=== PATIENT | female | born 1940 | race Caucasian/White ===

== ENCOUNTER 2018-08-28 10:28 | Emergency (ER) | payer OTHER, SELFPAY ==
[2018-08-28 10:40] VITALS: BP 140/91; PULSE 96; RESP 20; TEMP 36.5; O2SAT 96
--- NOTE | 2018-08-28 11:24 | W.ED.GENAD ---
Discharge Plan Disposition Patient Disposition: HOME Condition: Improving Discharge Details Chief Complaint: RespSymp Clinical Impression: Pneumonia, Asthmatic bronchitis Primary Care Provider: Sarahi Gordon ED Provider: Lissa Mcadams Home Meds and New Rx's Prescriptions: New prednisone 20 mg tablet 20 mg PO DIRECTED Qty: 12 RF: 0 doxycycline hyclate 100 mg tablet 100 mg PO BID 6 Days Qty: 12 RF: 0 No Action mometasone-formoterol [Dulera] 8.8 GM HFA aerosol inhaler 2 puff IN BID RF: 0 insulin lispro [Humalog KwikPen Insulin] 100 UNIT/ML insulin pen RF: 0 insulin glargine [Lantus Solostar U-100 Insulin] 100 UNIT/ML insulin pen 36 units Sub-Q HS RF: 0 Tresiba U-100 Insulin 100 unit/mL Solution 100 unit subcut DAILY RF: 0 aspirin [Aspir-Low] 81 MG tablet,delayed release (DR/EC) 81 mg PO DAILY RF: 0 levothyroxine [Levoxyl] 88 MCG tablet 88 mcg PO DAILY RF: 0 albuterol sulfate [ProAir HFA] 8.5 GM HFA aerosol inhaler 2 puff Inhalation PRN PRNRF: 0 rizatriptan [Maxalt-ELECTROLYSIS OPERATOR] 5 MG tablet,disintegrating 5 mg PO PRN PRNRF: 0 atorvastatin [Lipitor] 10 MG tablet 10 mg PO DAILY RF: 0 metformin 1,000 MG tablet 1,000 mg PO BID RF: 0 Discharge Instructions Instructions: Acute Bronchitis (ED), Pneumonia (ED) Additional Instructions: Take the antibiotics and steroids until finished. Use your albuterol inhaler that you have at home as needed for shortness of breath or wheezing. Monitor your blood sugar and adjust your meds as needed as steroids can increase your blood sugar. Follow-up with primary care doctor in 2 days for reevaluation. Return immediately to the emergency department any worsening or new concerning symptoms. Discharge Data Discharge Physician: Lissa Mcadams Medical Decision Making 77-year-old female with a history of asthma, diabetes, sleep apnea, GERD who presents with cough, shortness of breath, wheezing and chest congestion for the past 3 weeks. Recent additional flulike symptoms which have since resolved. Denies recent fever. Vitals within normal limits. Oxygen saturation 96% on room air. Patient has diffuse wheezing and rhonchi throughout. She is speaking full sentences and appears nontoxic. TMs erythematous bilaterally, remainder of ENT exam within normal limits. Appears consistent likely with bronchitis, asthmatic bronchitis. Presentation does not appear consistent with flu, patient is declining flu test. 1300 --patient admits to some improvement after neb treatment. O2 sat 88%. Breath sounds were coarse. She does not appear in any acute respiratory distress. We will give another neb treatment and reassess. 1430 --breath sounds improved, but still with scattered rhonchi. Initially oxygen saturations 88%, but with coughing improved to 96%. Patient is requesting another treatment. Chest x-ray notes an early right lower lobe pneumonia. Will give another treatment. Patient is also states she has a headache after the albuterol, will give a dose of ibuprofen and Tylenol and reassess. 1500 --patient feels much better and is requesting to go home. O2 sat 96%. Lungs sound significantly improved. Patient requests a dose of antibiotics here. Goes also given for home. She is instructed to follow-up with primary care doctor for reevaluation and return here at any time if worse. She was instructed to monitor her sugars as steroids can increase her blood glucose. Medical Records Medical records reviewed: Yes I reviewed the patient's medical records. Imaging Data Radiologic Study: Radiologist's impression: XR Chest, 2 Views FINDINGS: Lungs: There is mild midlung atelectasis or fibrosis again seen. There is mild right lower lobe atelectasis, new. There are increased parenchymal markings seen posteriorly presumably right-sided in nature. The lungs are hyperaerated and hyperlucent with increased retrosternal airspace. Pleural space: Unremarkable. No pleural effusion. No pneumothorax. Heart/Mediastinum: Unremarkable. No cardiomegaly. Vasculature: There is moderate aortic ectasia. Bones/joints: Moderate thoracic spondylosis. IMPRESSION: 1. Early right lower lobe pneumonia with mild atelectasis. Followup to assess clearing recommended. 2. COPD unchanged. HPI General Mode of arrival: ambulatory. Date/Time Provider Initiated Documentation: 08/28/18 10:48. Limitations to Documentation: no limitations. Information obtained by: patient. HPI Narrative: Patient is a 77-year-old female who presents to the ER with complaint of cough, shortness of breath and chest congestion for the past 3 weeks. States her symptoms started with cough, sore throat, ear pain, vomiting and decreased p.o. intake 3 weeks ago, but states the sore throat, vomiting, and decreased intake resolved and now she mainly has cough with light yellow sputum, chest congestion and wheezing. She admits to a fever 3 weeks ago but not now. She states she is eating much better. She states she now feels mainly generally weak and fatigued. She has a history of asthma states she feels like her symptoms are due to asthmatic bronchitis. She did not receive the flu shot this year. She states she did receive the pneumonia shot. She states she has not been on steroids or antibiotics in a very long time. She states she has been taking pjvq-ofl-[id number] cough medicine. She denies any chest pain. Related Data Home Medications Medication Instructions Recorded Confirmed mometasone-formoterol [Dulera] 2 puff IN BID 11/12/15 01/07/18 albuterol sulfate [ProAir HFA] 2 puff INHALATION PRN PRN 06/09/16 01/07/18 aspirin [Aspir-Low] 81 mg PO DAILY 06/09/16 01/07/18 levothyroxine [Levoxyl] 88 mcg PO DAILY 06/09/16 01/07/18 rizatriptan [Maxalt-ELECTROLYSIS OPERATOR] 5 mg PO PRN PRN 06/09/16 01/07/18 atorvastatin [Lipitor] 10 mg PO DAILY 12/07/16 01/07/18 metformin 1,000 mg PO BID 12/07/16 01/08/18 insulin glargine [Lantus Solostar 36 units SUB-Q HS 01/07/18 01/07/18 U-100 Insulin] insulin lispro [Humalog KwikPen 01/07/18 Insulin] doxycycline hyclate 100 mg PO BID 6 Days #12 tab 08/28/18 insulin degludec [Tresiba U-100 100 unit SUBCUT DAILY 08/28/18 08/28/18 Insulin] prednisone 20 mg PO DIRECTED #12 tab 08/28/18 Previous Rx's Medication Instructions Recorded doxycycline hyclate 100 mg PO BID 6 Days #12 tab 08/28/18 prednisone 20 mg PO DIRECTED #12 tab 08/28/18 Allergies Allergy/AdvReac Type Severity Reaction Status Date / Time iodine Allergy Severe Anaphylaxsi Unverified 08/28/18 10:45 s prochlorperazine Allergy Severe Anaphylaxsi Unverified 08/28/18 10:45 [From Compazine] s prochlorperazine edisylate Allergy Severe Anaphylaxsi Unverified 08/28/18 10:45 [From Compazine] s prochlorperazine maleate Allergy Severe Anaphylaxsi Unverified 08/28/18 10:45 [From Compazine] s latex Allergy Intermediate Skin Rash Unverified 08/28/18 10:45 General Stated Complaint: RespSymp CHANTEL: 3 Review of Systems Review of Systems All systems reviewed & are unremarkable except as noted in HPI and below Constitutional Reports as per HPI, Denies chills and Denies fever(s) Eyes Denies blurry vision ENT Denies dizziness, Denies sore throat and Denies throat swelling Cardiovascular Denies chest pain and Reports dyspnea Respiratory Reports cough and Reports dyspnea Gastrointestinal Denies abdominal pain, Denies diarrhea and Denies vomiting Genitourinary Denies hematuria and Denies dysuria Musculoskeletal Denies back pain and Denies numbness Integumentary/Breasts Denies lesions and Denies rash Neurologic Denies dizziness, Denies focal weakness and Denies numbness Allergic/Immunologic Denies throat swelling [facility] Medical History Asthma (Chronic) Diabetes (Chronic) GERD (gastroesophageal reflux disease) (Chronic) Hypothyroidism (Chronic) Obstructive sleep apnea (Chronic) Surgical History History of cataract surgery (Chronic) History of hysterectomy (Chronic) Social History Smoking and Tabacco status: Never alcohol intake: never substance use type: does not use Exam Const General: cooperative and healthy appearing Orientation: alert and awake HENMT Head: normal to inspection Ears: hearing grossly normal bilaterally, external ears normal and TM abnormal erythematous bilaterally General nose exam: external nose normal Face and sinus: normal facial exam Mouth: oral mucosae normal Teeth and gingiva: dentition normal Throat: posterior oropharynx normal Eyes General: appearance normal, both eyes and all related structures Eyelids: eyelids normal Pupils: PERRL EOM: EOM intact bilaterally Neck Neck: normal visual inspection Lymphatic: no lymphadenopathy noted Chest Chest: normal inspection of the chest Resp Effort & Inspection: normal respiratory effort and able to speak in complete sentences Auscultation: rhonchi and wheezes lower bilaterally and upper bilaterally Cardio Rate: regular rate Rhythm: regular rhythm GI Inspection: normal to inspection Palpation: soft, not firm, no guarding, no hepatosplenomegaly, no masses and nontender Auscultation: normal bowel sounds Skin General skin exam: no rashes or lesions noted Neuro General: alert and awake Cognition: normal cognition Speech: speech normal Gait: normal gait Motor: muscle tone normal throughout Sensory Exam: no sensory deficits noted Extrem General: normal to inspection, full ROM, normal capillary refill and no edema Psych Appearance: grossly normal Mental Status: mental status grossly normal Speech and Movement: speech and movement normal Affect: normal affect Thought Process: normal Course Vital Signs Temperature 97.7 F 08/28/18 10:40 Pulse 96 H 08/28/18 10:40 Respiratory Rate 20 08/28/18 10:40 Blood Pressure 140/91 H 08/28/18 10:40 Pulse Oximetry 96 08/28/18 10:40 Temperature 97.7 F 08/28/18 10:40 Temperature Source Skin 08/28/18 10:40 Pulse 96 H 08/28/18 10:40 Respiratory Rate 20 08/28/18 10:40 Respiratory Effort 08/28/18 10:48 Respiratory Depth Normal 08/28/18 10:48 Blood Pressure 140/91 H 08/28/18 10:40 Pulse Oximetry 96 08/28/18 10:40 Pain Level 5 08/28/18 10:40
[2018-08-28 11:29] VITALS: PULSE 88; RESP 18; RESP 7; O2SAT 96
[2018-08-28] MEDS: Albuterol 2.5 MG/3 ML INH SOLN VIAL 5 MG UPD ×2 (11:29→13:10)
--- NOTE | 2018-08-28 11:29 | ED.GENADUL_ITS ---
Discharge Plan Disposition Patient Disposition: HOME Condition: Improving Discharge Details Chief Complaint: RespSymp Clinical Impression: Pneumonia, Asthmatic bronchitis Primary Care Provider: Sarahi Gordon ED Provider: Lissa Mcadams Home Meds and New Rx's Prescriptions: New prednisone 20 mg tablet 20 mg PO DIRECTED Qty: 12 RF: 0 doxycycline hyclate 100 mg tablet 100 mg PO BID 6 Days Qty: 12 RF: 0 No Action mometasone-formoterol [Dulera] 8.8 GM HFA aerosol inhaler 2 puff IN BID RF: 0 insulin lispro [Humalog KwikPen Insulin] 100 UNIT/ML insulin pen RF: 0 insulin glargine [Lantus Solostar U-100 Insulin] 100 UNIT/ML insulin pen 36 units Sub-Q HS RF: 0 Tresiba U-100 Insulin 100 unit/mL Solution 100 unit subcut DAILY RF: 0 aspirin [Aspir-Low] 81 MG tablet,delayed release (DR/EC) 81 mg PO DAILY RF: 0 levothyroxine [Levoxyl] 88 MCG tablet 88 mcg PO DAILY RF: 0 albuterol sulfate [ProAir HFA] 8.5 GM HFA aerosol inhaler 2 puff Inhalation PRN PRNRF: 0 rizatriptan [Maxalt-FUSE MAKER] 5 MG tablet,disintegrating 5 mg PO PRN PRNRF: 0 atorvastatin [Lipitor] 10 MG tablet 10 mg PO DAILY RF: 0 metformin 1,000 MG tablet 1,000 mg PO BID RF: 0 Discharge Instructions Instructions: Acute Bronchitis (ED), Pneumonia (ED) Additional Instructions: Take the antibiotics and steroids until finished. Use your albuterol inhaler that you have at home as needed for shortness of breath or wheezing. Monitor your blood sugar and adjust your meds as needed as steroids can increase your blood sugar. Follow-up with primary care doctor in 2 days for reevaluation. Return immediately to the emergency department any worsening or new concerning symptoms. Discharge Data Discharge Physician: Lissa Mcadams Medical Decision Making 77-year-old female with a history of asthma, diabetes, sleep apnea, GERD who presents with cough, shortness of breath, wheezing and chest congestion for the past 3 weeks. Recent additional flulike symptoms which have since resolved. Denies recent fever. Vitals within normal limits. Oxygen saturation 96% on room air. Patient has diffuse wheezing and rhonchi throughout. She is speaking full sentences and appears nontoxic. TMs erythematous bilaterally, remainder of ENT exam within normal limits. Appears consistent likely with bronchitis, asthmatic bronchitis. Presentation does not appear consistent with flu, patient is declining flu test. 1300 --patient admits to some improvement after neb treatment. O2 sat 88%. Breath sounds were coarse. She does not appear in any acute respiratory distress. We will give another neb treatment and reassess. 1430 --breath sounds improved, but still with scattered rhonchi. Initially oxygen saturations 88%, but with coughing improved to 96%. Patient is requesting another treatment. Chest x-ray notes an early right lower lobe pneumonia. Will give another treatment. Patient is also states she has a headache after the albuterol, will give a dose of ibuprofen and Tylenol and reassess. 1500 --patient feels much better and is requesting to go home. O2 sat 96%. Lungs sound significantly improved. Patient requests a dose of antibiotics here. Goes also given for home. She is instructed to follow-up with primary care doctor for reevaluation and return here at any time if worse. She was instructed to monitor her sugars as steroids can increase her blood glucose. Medical Records Medical records reviewed: Yes I reviewed the patient's medical records. Imaging Data Radiologic Study: Radiologist's impression: XR Chest, 2 Views FINDINGS: Lungs: There is mild midlung atelectasis or fibrosis again seen. There is mild right lower lobe atelectasis, new. There are increased parenchymal markings seen posteriorly presumably right-sided in nature. The lungs are hyperaerated and hyperlucent with increased retrosternal airspace. Pleural space: Unremarkable. No pleural effusion. No pneumothorax. Heart/Mediastinum: Unremarkable. No cardiomegaly. Vasculature: There is moderate aortic ectasia. Bones/joints: Moderate thoracic spondylosis. IMPRESSION: 1. Early right lower lobe pneumonia with mild atelectasis. Followup to assess clearing recommended. 2. COPD unchanged. HPI General Mode of arrival: ambulatory . Date/Time Provider Initiated Documentation: 08/28/18 10:48 . Limitations to Documentation: no limitations . Information obtained by: patient . HPI Narrative: Patient is a 77-year-old fe male who presents to the ER with complaint of cough, shortness of breath and chest congestion for the past 3 weeks. States her symptoms started with cough, sore throat, ear pain, vomiting and decreased p.o. intake 3 weeks ago, but states the sore throat, vomiting, and decreased intake resolved and now she mainly has cough with light yellow sputum, chest congestion and wheezing. She admits to a fever 3 weeks ago but not now. She states she is eating much better. She states she now feels mainly generally weak and fatigued. She has a history of asthma states she feels like her symptoms are due to asthmatic bronchitis. She did not receive the flu shot this year. She states she did receive the pneumonia shot. She states she has not been on steroids or antibiotics in a very long time. She states she has been taking evof-vla-[id number] cough medicine. She denies any chest pain. Related Data Home Medications Medication Instructions Recorded Confirmed mometasone-formoterol [Dulera] 2 puff IN BID 11/12/15 01/07/18 albuterol sulfate [ProAir HFA] 2 puff INHALATION PRN PRN 06/09/16 01/07/18 aspirin [Aspir-Low] 81 mg PO DAILY 06/09/16 01/07/18 levothyroxine [Levoxyl] 88 mcg PO DAILY 06/09/16 01/07/18 rizatriptan [Maxalt-FUSE MAKER] 5 mg PO PRN PRN 06/09/16 01/07/18 atorvastatin [Lipitor] 10 mg PO DAILY 12/07/16 01/07/18 metformin 1,000 mg PO BID 12/07/16 01/08/18 insulin glargine [Lantus Solostar 36 units SUB-Q HS 01/07/18 01/07/18 U-100 Insulin] insulin lispro [Humalog KwikPen 01/07/18 Insulin] doxycycline hyclate 100 mg PO BID 6 Days #12 tab 08/28/18 insulin degludec [Tresiba U-100 100 unit SUBCUT DAILY 08/28/18 08/28/18 Insulin] prednisone 20 mg PO DIRECTED #12 tab 08/28/18 Previous Rx's Medication Instructions Recorded doxycycline hyclate 100 mg PO BID 6 Days #12 tab 08/28/18 prednisone 20 mg PO DIRECTED #12 tab 08/28/18 Allergies Allergy/AdvReac Type Severity Reaction Status Date / Time iodine Allergy Severe Anaphylaxsi Unverified 08/28/18 10:45 s prochlorperazine Allergy Severe Anaphylaxsi Unverified 08/28/18 10:45 [From Compazine] s prochlorperazine edisylate Allergy Severe Anaphylaxsi Unverified 08/28/18 10:45 [From Compazine] s prochlorperazine maleate Allergy Severe Anaphylaxsi Unverified 08/28/18 10:45 [From Compazine] s latex Allergy Intermediate Skin Rash Unverified 08/28/18 10:45 General Stated Complaint: RespSymp CHANTEL: 3 Review of Systems Review of Systems All systems reviewed & are unremarkable except as noted in HPI and below Constitutional Reports as per HPI, Denies chills and Denies fever(s) Eyes Denies blurry vision ENT Denies dizziness, Denies sore throat and Denies throat swelling Cardiovascular Denies chest pain and Reports dyspnea Respiratory Reports cough and Reports dyspnea Gastrointestinal Denies abdominal pain, Denies diarrhea and Denies vomiting Genitourinary Denies hematuria and Denies dysuria Musculoskeletal Denies back pain and Denies numbness Integumentary/Breasts Denies lesions and Denies rash Neurologic Denies dizziness, Denies focal weakness and Denies numbness Allergic/Immunologic Denies throat swelling [facility] Medical History Asthma (Chronic) Diabetes (Chronic) GERD (gastroesophageal reflux disease) (Chronic) Hypothyroidism (Chronic) Obstructive sleep apnea (Chronic) Surgical History History of cataract surgery (Chronic) History of hysterectomy (Chronic) Social History Smoking and Tabacco status: Never alcohol intake: never substance use type: does not use Exam Const General: cooperative and healthy appearing Orientation: alert and awake HENID Head: normal to inspection Ears: hearing grossly normal bilaterally, external ears normal and TM abnormal erythematous bilaterally General nose exam: external nose normal Face and sinus: normal facial exam Mouth: oral mucosae normal Teeth and gingiva: dentition normal Throat: posterior oropharynx normal Eyes General: appearance normal, both eyes and all related structures Eyelids: eyelids normal Pupils: PERRL EOM: EOM intact bilaterally Neck Neck: normal visual inspection Lymphatic: no lymphadenopathy noted Chest Chest: normal inspection of the chest Resp Effort & Inspection: normal respiratory effort and able to speak in complete sentences Auscultation: rhonchi and wheezes lower bilaterally and upper bilaterally Cardio Rate: regular rate Rhythm: regular rhythm GI Inspection: normal to inspection Palpation: soft, not firm, no guarding, no hepatosplenomegaly, no masses and nontender Auscultation: normal bowel sounds Skin General skin exam: no rashes or lesions noted Neuro General: alert and awake Cognition: normal cognition Speech: speech normal Gait: normal gait Motor: muscle tone normal throughout Sensory Exam: no sensory deficits noted Extrem General: normal to inspection, full ROM, normal capillary refill and no edema Psych Appearance: grossly normal Mental Status: mental status grossly normal Speech and Movement: speech and movement normal Affect: normal affect Thought Process: normal Course Vital Signs Temperature 97.7 F 08/28/18 10:40 Pulse 96 H 08/28/18 10:40 Respiratory Rate 20 08/28/18 10:40 Blood Pressure 140/91 H 08/28/18 10:40 Pulse Oximetry 96 08/28/18 10:40 Temperature 97.7 F 08/28/18 10:40 Temperature Source Skin 08/28/18 10:40 Pulse 96 H 08/28/18 10:40 Respiratory Rate 20 08/28/18 10:40 Respiratory Effort 08/28/18 10:48 Respiratory Depth Normal 08/28/18 10:48 Blood Pressure 140/91 H 08/28/18 10:40 Pulse Oximetry 96 08/28/18 10:40 Pain Level 5 08/28/18 10:40
[2018-08-28] MEDS: predniSONE 20 MG TAB 60 MG PO (11:30)
[2018-08-28 11:59] VITALS: PULSE 87; RESP 20; RESP 7; O2SAT 98
--- NOTE | 2018-08-28 12:10 | DI.RAD_ITS ---
SYMPTOMS/DIAGNOSIS: COUGH, SHORTNESS OF BREATH, ? ACUTE DISEASE/PNEUMONIA CHEST: Frontal and lateral views. Comparison is 01/07/18. The heart size and pulmonary vasculature appears stable and within normal limits. There is again seen scarring in the mid lungs. There is a new infiltrate however in the right base. No effusions or pneumothoraces are identified. Degenerative changes are seen in the spine. IMPRESSION: Right basilar infiltrate which appears new since 01/07/18. This may represent atelectasis or pneumonia.
--- NOTE | 2018-08-28 13:04 | DI.VRAD_ITS ---
EXAM: XR Chest, 2 Views EXAM DATE/TIME: 08/28/2018 11:59 AM CLINICAL HISTORY: 77 years old, female; Signs and symptoms; Other: Cough, shortness of breath TECHNIQUE: XR of the chest, 2 views. COMPARISON: CR CHEST 2 VIEWS PA,LAT 01/07/2018 8:52 PM FINDINGS: Lungs: There is mild midlung atelectasis or fibrosis again seen. There is mild right lower lobe atelectasis, new. There are increased parenchymal markings seen posteriorly presumably right-sided in nature. The lungs are hyperaerated and hyperlucent with increased retrosternal airspace. Pleural space: Unremarkable. No pleural effusion. No pneumothorax. Heart/Mediastinum: Unremarkable. No cardiomegaly. Vasculature: There is moderate aortic ectasia. Bones/joints: Moderate thoracic spondylosis. IMPRESSION: 1. Early right lower lobe pneumonia with mild atelectasis. Followup to assess clearing recommended. 2. COPD unchanged. COMMENT: Preliminary interpretation is based on receipt of 2 image(s). A final report will be issued subsequently. Dictated and Authenticated by: Elizabeth Salinas MD. Ordering:MARVIN Alcaraz MD
[2018-08-28 13:10] VITALS: PULSE 88; RESP 16; RESP 7; O2SAT 91
[2018-08-28] MEDS: Acetaminophen 325 MG TAB 650 MG PO (14:38)
[2018-08-28] MEDS: Ibuprofen 600 MG TAB PO (14:38)
[2018-08-28 14:44] VITALS: PULSE 90; RESP 20; RESP 5; O2SAT 96
[2018-08-28] MEDS: Albuterol 2.5 MG/3 ML INH SOLN VIAL UPD (14:44)
[2018-08-28 15:15] VITALS: BP 107/85; PULSE 111; RESP 18; O2SAT 93
[2018-08-28] MEDS: Doxycycline Hyclate 100 MG CAP PO ×2 (15:15)
== END 2018-08-28 15:20 | disposition home or self-care (01) ==
PROVIDERS: Emergency Provider Physician Assistant; PCP Family Medicine
DX: J18.9 Pneumonia, unspecified organism (principal); J45.909 Unspecified asthma, uncomplicated; E11.9 Type 2 diabetes mellitus without complications; Z79.84 Long term (current) use of oral hypoglycemic drugs
CPT/HCPCS: 94640; 99284; 71046; J7512; J7613

== ENCOUNTER 2019-01-11 11:29 | Outpatient (CLI) | payer OTHER, SELFPAY ==
--- NOTE | 2019-01-11 09:21 | DI.RAD_ITS ---
SYMPTOM/DIAGNOSIS: RIGHT HIP PAIN, LT KNEE PAIN RIGHT HIP AND PELVIS: The bony structures are normally mineralized. There are minimal degenerative changes involving the right hip. Note is made of DJD involving the lower lumbar spine where a narrowed vacuum disc is identified at L 4-5. LEFT KNEE: There is mild narrowing of the medial tibiofemoral joint compartment. Minimal periarticular hypertrophic spurring is identified. There is no evidence of a joint effusion. SUMMARY: Findings consistent with mild DJD.
== END 2019-01-11 11:49 ==
PROVIDERS: PCP Family Medicine; Referring Provider Family Medicine; Visit Provider Orthopaedic Surgery
DX: M25.551 Pain in right hip (principal); M25.562 Pain in left knee; M17.12 Unilateral primary osteoarthritis, left knee; M16.12 Unilateral primary osteoarthritis, left hip; J44.9 Chronic obstructive pulmonary disease, unspecified
CPT/HCPCS: 99201; 99213; 73502; 73560

== ENCOUNTER → 2019-02-08 09:24 | Outpatient (BNVA) | payer OTHER, SELFPAY | PROVIDERS: PCP Family Medicine; Referring Provider Family Medicine; Visit Provider Orthopaedic Surgery | DX: M25.551 Pain in right hip (principal); M25.562 Pain in left knee; M70.61 Trochanteric bursitis, right hip; M17.12 Unilateral primary osteoarthritis, left knee | CPT/HCPCS: 99213 ==

== ENCOUNTER 2019-03-04 17:22 | Emergency (ER) | payer OTHER, SELFPAY ==
[2019-03-04 17:37] VITALS: BP 154/85; PULSE 88; RESP 18; TEMP 36.4; O2SAT 96
--- NOTE | 2019-03-04 17:52 | ED.GENADUL_ITS ---
Discharge Plan Disposition Patient Disposition: HOME Condition: Improving Discharge Details Chief Complaint: DentalOral Clinical Impression: Odontalgia Primary Care Provider: Sarahi Gordon ED Provider: Anthony Gorman Home Meds and New Rx's Prescriptions: New penicillin V potassium 500 mg tablet 500 mg PO TID 10 Days Qty: 30 RF: 0 Continued Levemir U-100 Insulin 100 unit/mL solution 32 unit SC QHS RF: 0 levothyroxine 75 mcg Tablet 75 mcg PO DAILY RF: 0 albuterol sulfate [ProAir HFA] 8.5 GM HFA aerosol inhaler 2 puff Inhalation PRN PRNRF: 0 atorvastatin [Lipitor] 10 MG tablet 10 mg PO DAILY RF: 0 metformin 1,000 MG tablet 1,000 mg PO BID RF: 0 Discharge Instructions Instructions: Toothache (ED) Additional Instructions: Please follow-up with dentistry for recheck. Take penicillin as prescribed. May apply dental wax, available [id number] at the pharmacy, to area to reduce discomfort. Tylenol as needed for pain. Return for any acute concern Medical Decision Making 78-year-old female presents with dental pain over 1 week's time. She has numerous dental caries and broken cusps of the left mandibular premolar. Given a periosteal block and I will place her on penicillin. She will be referred to dentistry for follow-up as a feel she likely will need an extraction. She understands home management. HPI General Mode of arrival: ambulatory . Date/Time Provider Initiated Documentation: 03/04/19 17:29 . Limitations to Documentation: no limitations . Information obtained by: patient . History of Present Illness 78 year old F presents to the emergency department with the chief complaint of Left mandibular tooth pain, described as moderate, Quality is described as aching, dull and constant, and is localized to the face and mouth. Patient started experiencing this day(s) and it has been constant. No relieving factors improve symptom(s), No exacerbating factors reported . Patient notes no other symptoms.; denies fever/chills. Patient did receive the following treatments prior to arrival, none Related Data Home Medications Medication Instructions Recorded Confirmed albuterol sulfate [ProAir HFA] 2 puff INHALATION PRN PRN 06/09/16 03/04/19 atorvastatin [Lipitor] 10 mg PO DAILY 12/07/16 03/04/19 metformin 1,000 mg PO BID 12/07/16 03/04/19 insulin detemir U-100 100 unit/mL 32 unit SC QHS ml 01/11/19 03/04/19 subcutaneous solution levothyroxine 75 mcg PO DAILY 03/04/19 03/04/19 penicillin V potassium 500 mg PO TID 10 Days #30 tab 03/04/19 Previous Rx's Medication Instructions Recorded penicillin V potassium 500 mg PO TID 10 Days #30 tab 03/04/19 Allergies Allergy/AdvReac Type Severity Reaction Status Date / Time iodine Allergy Severe Anaphylaxsi Unverified 03/04/19 17:43 s prochlorperazine Allergy Severe Anaphylaxsi Unverified 03/04/19 17:43 [From Compazine] s prochlorperazine edisylate Allergy Severe Anaphylaxsi Unverified 03/04/19 17:43 [From Compazine] s prochlorperazine maleate Allergy Severe Anaphylaxsi Unverified 03/04/19 17:43 [From Compazine] s latex Allergy Intermediate Skin Rash Unverified 03/04/19 17:43 General Stated Complaint: DentalOral CHANTEL: 4 Review of Systems Review of Systems 6 systems reviewed and otherwise negative. No drooling, no change to voice. [facility] Medical History Asthma (Chronic) Diabetes (Chronic) GERD (gastroesophageal reflux disease) (Chronic) Greater trochanteric bursitis of right hip (Acute) Hypothyroidism (Chronic) Obstructive sleep apnea (Chronic) Surgical History History of cataract surgery (Chronic) History of hysterectomy (Chronic) Social History Smoking/Tobacco Use Status: Never Alcohol Intake: never Drug use: Never Substance use type: does not use Do you feel safe in your relationship?: Yes Exam Narrative Exam Narrative: GEN: awake, alert, oriented 3. Pleasant, well groomed, interactive. HEAD: Normocephalic, atraumatic ENT: Mucous membranes moist, oropharynx with numerous dental caries. There are broken buccal and lingual cusps of second premolar on the left mandibular position. No fluctuance, External ear exam unremarkable EYES: PERRL, EOMI Neuro: Grossly normal neurologic exam, conversant, interactive. Psych: Speech fluent, thoughts congruent, affect normal Course Vital Signs Temperature 36.4 C L 03/04/19 17:37 Pulse 88 03/04/19 17:37 Respiratory Rate 18 03/04/19 17:37 Blood Pressure 154/85 H 03/04/19 17:37 Pulse Oximetry 96 03/04/19 17:37 Temperature 36.4 C L 03/04/19 17:37 Temperature Source Temporal Artery Scan 03/04/19 17:37 Pulse 88 03/04/19 17:37 Respiratory Rate 18 03/04/19 17:37 Respiratory Effort Non-Labored 03/04/19 17:42 Blood Pressure 154/85 H 03/04/19 17:37 Blood Pressure Position Sitting 03/04/19 17:37 Pulse Oximetry 96 03/04/19 17:37 Oxygen Delivery Method Room Air 03/04/19 17:37 Oxygen Flow Rate 0 03/04/19 17:37 Pain Level 10 03/04/19 17:48 Procedures Nerve Block Nerve Block 1: Time out performed: Yes Local Anesthetic: Lidocaine 1% and Bupivicaine 0.25% Amount of anesthesia used (mL): 2 Side: left Intraoral Nerve Block: supraperiosteal Procedure Successful: Yes Patient Tolerated Procedure: well
[2019-03-04] MEDS: Bupivacaine 0.5% Pres-Free 30 ML VIAL (17:55)
[2019-03-04] MEDS: Penicillin V POTASSIUM 500 MG TAB 1500 MG PO (17:58)
== END 2019-03-04 18:05 | disposition home or self-care (01) ==
PROVIDERS: Emergency Provider Emergency Medicine; PCP Family Medicine
DX: R68.84 Jaw pain (principal); K08.89 Other specified disorders of teeth and supporting structures; E11.9 Type 2 diabetes mellitus without complications; Z79.4 Long term (current) use of insulin
CPT/HCPCS: 64402

== ENCOUNTER 2019-04-03 10:45 | Outpatient (REF) | payer OTHER, SELFPAY ==
[2019-04-03 21:44] LABS: HCT 39.8 % (36.0-46.0); HGB 13.1 g/dL (12.0-15.5); Mean Corp. HGB Concentration 32.9 g/dL (32.0-36.0); Mean Corpuscular Hemoglobin 29.2 pg (27.0-33.0); Mean Corpuscular Volume 88.6 fL (80-95); Mean Platelet Volume 10.7 fL (8.0-11.0); Platelet Count 297 x1000/uL (130-400); RBC 4.49 m/cumm (4.00-5.20); RBC Distribution Width 15.6 % (11.7-14.6); White Blood Cell Count 9.49 k/cumm (4.4-10.8)
[2019-04-03 21:55] LABS: Hemoglobin A1C 5.6 % (4.5-6.2)
[2019-04-03 21:58] LABS: ALT 22 U/L (14-59); AST 18 U/L (15-37); Albumin 4.3 g/dL (3.4-5.0); Alkaline Phosphatase 85 U/L (46-116); Anion Gap 10.7 mmol/L (3-11); BUN 20 mg/dL (7-18); Bilirubin, Total 0.6 mg/dL (0.2-1.0); CO2 25.3 mmol/L (21.0-32.0); CREATININE 1.14 mg/dL (0.55-1.02); Calcium 9.8 mg/dL (8.5-10.1); Calculated LDL 51 mg/dL; Chloride 105 mmol/L (98-107); Cholesterol 130 mg/dL (50-200); Glucose 63 mg/dL (70-100); HDL Cholesterol 57 mg/dL (40-60); Sodium 141 mmol/L (136-145); TSH (W/Ref FT4) 3.68 uIU/mL (0.36-3.74); Total Protein 6.6 g/dL (6.4-8.2); Triglyceride 112 mg/dL (30-150)
== END 2019-04-03 11:05 ==
LOC: NCHCN 10:45
PROVIDERS: PCP Family Medicine; Visit Provider Family Medicine
DX: E03.9 Hypothyroidism, unspecified (principal); E11.9 Type 2 diabetes mellitus without complications; I10 Essential (primary) hypertension
CPT/HCPCS: 80053; 80061; 85027; 83036; 84443

== ENCOUNTER 2019-08-09 15:07 | Emergency (ER) | payer OTHER, SELFPAY ==
[2019-08-09] VITALS (39 sets, daily range): BP systolic 139–174; BP diastolic 70–144; PULSE 51–108; RESP 12–29; TEMP 36.9; O2SAT 14–98
--- NOTE | 2019-08-09 | DI.RAD_ITS ---
EXAM: XR CHEST 2V PA LATERAL CLINICAL HISTORY: cough, CP, RLL crackles TECHNIQUE: COMPARISON: XR CHEST 2V PA LATERAL from 08/28/2018 FINDINGS: The heart is not enlarged. There are bilateral changes of pulmonary scarring. No acute consolidatio n. No pleural effusion. IMPRESSION: No evidence of acute process.
--- NOTE | 2019-08-09 15:47 | W.ED.GENAD ---
Discharge Plan Disposition Patient Disposition: HOME Condition: Fair Discharge Details Chief Complaint: Chest Pain Clinical Impression: Atypical chest pain, Hypoglycemia Primary Care Provider: Sarahi Gordon ED Provider: uSzi Griffin Home Meds and New Rx's Prescriptions: Continued Levemir U-100 Insulin 100 unit/mL solution 32 unit SC QHS RF: 0 levothyroxine 75 mcg Tablet 75 mcg PO DAILY RF: 0 albuterol sulfate [ProAir HFA] 8.5 GM HFA aerosol inhaler 2 puff Inhalation PRN PRNRF: 0 atorvastatin [Lipitor] 10 MG tablet 10 mg PO DAILY RF: 0 metformin 1,000 MG tablet 1,000 mg PO BID RF: 0 Discharge Instructions Instructions: Chest Pain (ED) Additional Instructions: Encourage water intake. Please only use 20 units of subcu insulin tonight instead of your typical 30. Your evaluation thus far is reassuring. However, I do remain concerned regarding your usual chest discomfort I would like for you to return with any new or worsening symptoms immediately. I would like for you to follow-up with your primary care tomorrow for reevaluation. Referrals: Sarahi Gordon [Primary Care Provider] - Discharge Data Discharge Date/Time-TO BE ENTERED AT DEPARTURE: 08/09/19 19:55 Medical Decision Making Patient is a pleasant 78-year-old female presenting today with chief complaint of chest heaviness. She reports this began insidiously yesterday. Did not find it worsened with exertion. She denies any shortness of breath. She does report that she has had a cough the past few days but that this is been largely nonproductive. She reports that her glucose has been fairly labile and is concerned that she has had multiple episodes of hypoglycemia. States that she did have amitriptyline added to her daily regimen 3 days ago that she found that this left her feeling hung over the following day. States that she did not take any last night. Awoke feeling shaky and associated this with low glucose as it was in the 60s but otherwise feeling well. States that last night while in bed, she noted some left arm discomfort. This pain did not wake her up. Did not find that this was worsened with exertion. Patient is left-hand dominant. Was unable to alleviate the pain mechanically but states that it self resolved. Is currently endorsing some chest heaviness. She did receive aspirin from EMS. She reports that she was here with a similar complaint 1 year ago at which time she was admitted. She reports that she did have a stress test at that time without any significant abnormality noted. She denies any recent travels. Denies any pain in her back. Patient has history of asthma, diabetes, GERD, hypothyroidism, ALEXEY EKG was reviewed by Dr. Gorman. He was able to compare to previous in December 2018 with no acute abnormalities noted. No ischemic changes visualized at this time. On exam, patient is resting comfortably. She is hypertensive at 158 over 82, otherwise vital signs within normal limits. Normal cardiac exam with no murmurs, rubs, gallops noted. No lower extremity edema. She does have crackles noted in the right lower lobe. With the cough and exam findings, I am concerned primarily for infectious etiology given this finding will obtain imaging of the patient's chest. Also considered ACS although I find this less likely as symptoms are not exertionally based. Also considered other cardiac persist pulmonary based sources. FINDINGS: Lungs: Subsegmental linear atelectasis versus scarring in the bilateral mid to lower lung grubbs. Pleural space: Unremarkable. No pleural effusion. No pneumothorax. Heart/Mediastinum: Unremarkable. No cardiomegaly. Vasculature: Mild atherosclerosis. Bones/joints: Degenerative changes in the spine. IMPRESSION: Subsegmental linear atelectasis versus scarring in the bilateral mid to lower lung grubbs. Mild atherosclerosis. Degenerative changes in the spine. Labs reviewed. No leukocytosis. Creatinine is elevated at 1.22, this is baseline for the patient. Glucose low at 71, patient is eating now. Troponin less than 0.05. TSH is elevated at 9.93, free T4 is pending. Free T4 within normal limits at 0.92. Repeat troponin is less than 0.05. Patient has remained asymptomatic while here. She and I discussed disposition options at length. We did discuss inpatient treatment and patient prefers to go home. She was given strict return precautions, lives locally and is able to return urgently with any new or worsening symptoms. With her recurrent hypoglycemia, I did advise that she decrease her insulin dosing and discuss this further with her primary care provider. Also discussed that she would likely need further testing. She did have a stress test 1 year ago but I did advise that this should be completed once again as an outpatient through her primary care provider. All of her questions and concerns were addressed and she is in agreement with this plan. HPI General Mode of arrival: EMS. Date/Time Provider Initiated Documentation: 08/09/19 15:39. Limitations to Documentation: no limitations. Information obtained by: patient, EMS and RN notes reviewed. History of Present Illness 78 year old F presents to the emergency department with the chief complaint of Chest heaviness, cough, described as mild and similar to prior episodes, Quality is described as aching, and is localized to the chest. Patient reports no radiation. Patient started experiencing this day(s) (1) and it has been constant. No relieving factors improve symptom(s), No exacerbating factors reported . Patient notes chest pain, cough and loss of appetite (X1 week); denies diaphoresis, fever/chills, headaches, nausea/vomiting, rash, shortness of breath and weakness. Patient did receive the following treatments prior to arrival, Aspirin (Full dose given by EMS) Related Data Home Medications Medication Instructions Recorded Confirmed albuterol sulfate [ProAir HFA] 2 puff INHALATION PRN PRN 06/09/16 08/09/19 atorvastatin [Lipitor] 10 mg PO DAILY 12/07/16 08/09/19 metformin 1,000 mg PO BID 12/07/16 08/09/19 insulin detemir U-100 100 unit/mL 32 unit SC QHS ml 01/11/19 08/09/19 subcutaneous solution levothyroxine 75 mcg PO DAILY 03/04/19 08/09/19 Allergies Allergy/AdvReac Type Severity Reaction Status Date / Time iodine Allergy Severe Anaphylaxsi Unverified 08/09/19 18:04 s prochlorperazine Allergy Severe Anaphylaxsi Unverified 08/09/19 18:04 [From Compazine] s prochlorperazine edisylate Allergy Severe Anaphylaxsi Unverified 08/09/19 18:04 [From Compazine] s prochlorperazine maleate Allergy Severe Anaphylaxsi Unverified 08/09/19 18:04 [From Compazine] s latex Allergy Intermediate Skin Rash Unverified 08/09/19 18:04 General Stated Complaint: Chest Pain CHANTEL: 2 Review of Systems Constitutional Constitutional: Reports as per HPI, Denies chills, Denies fever(s), Denies headache(s), Denies lethargy and Denies poor appetite Eyes Eyes: Denies change in vision ENT Ears, Nose, Mouth, and Throat: Denies dizziness and Denies headache(s) Cardiovascular Cardiovascular: Reports as per HPI, Denies dyspnea and Denies dyspnea on exertion Respiratory Respiratory: Reports as per HPI, Denies chest congestion, Denies cough, Denies pain on inspiration, Denies pain with cough, Denies dyspnea, Denies dyspnea on exertion and Denies wheezing Gastrointestinal Gastrointestinal: Reports as per HPI, Denies abdominal pain, Denies diarrhea, Denies nausea and Denies vomiting Musculoskeletal Musculoskeletal: Reports as per HPI and Denies back pain Integumentary/Breasts Skin/Breast: Reports as per HPI and Denies rash Neurologic Neurologic: Reports as per HPI, Denies dizziness and Denies headache(s) Allergic/Immunologic Allergic/Immunologic: Denies wheezing [facility] Medical History Asthma (Chronic) Diabetes (Chronic) GERD (gastroesophageal reflux disease) (Chronic) Greater trochanteric bursitis of right hip (Acute) Hypothyroidism (Chronic) Obstructive sleep apnea (Chronic) Vaginal vault prolapse, posthysterectomy (Acute) 04/25/2019 64 mm ring pessary with support. Surgical History History of cataract surgery (Chronic) History of hysterectomy (Chronic) 32yo. with BSO. for benign indications. Social History Smoking/Tobacco Use Status: Never Alcohol Intake: never Drug use: Never Substance use type: does not use Household members: other Details: Pt has been x35yrs. lives alone. 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 Sexually active: No Do you feel safe at home: Yes Do you feel safe in your relationship?: Yes Exam Const General: cooperative, healthy appearing, comfortable, no acute distress and well developed Nutritional Appearance: average body habitus and well nourished Orientation: alert, awake and oriented x3 HENMT Head: normal to inspection Ears: hearing grossly normal bilaterally Mouth: moist mucous membranes Chest Chest: normal inspection of the chest, normal palpation of entire chest wall and no crepitus Resp Effort & Inspection: normal respiratory effort, able to speak in complete sentences and no respiratory distress Auscultation: clear to auscultation bilaterally, no rales, no rhonchi and no wheezes Cardio Rate: regular rate Rhythm: regular rhythm Heart Sounds: S1 normal and S2 normal GI Inspection: normal to inspection, no edema and non-distended Palpation: soft, no hepatosplenomegaly, not firm, no guarding, not rigid and nontender Auscultation: normal bowel sounds Back/Spine/Pelvis Back: no CVA tenderness Thoracic/Lumbar Spine: thoracic and lumbar spine normal to inspection Skin General skin exam: no rashes or lesions noted Trauma: no lacerations or abrasions Neuro General: alert, awake and oriented x3 Cognition: normal cognition Speech: speech normal Gait: normal gait Extrem General: normal to inspection, normal capillary refill, no pedal edema, no calf tenderness and normal gait Psych Appearance: grossly normal and well kempt Mental Status: mental status grossly normal Speech and Movement: speech and movement normal Course Vital Signs Vital signs: Vital Signs Temperature 36.9 C 08/09/19 15:07 Pulse 88 08/09/19 15:07 Respiratory Rate 08/09/19 15:07 Blood Pressure 158/82 H 08/09/19 15:07 Pulse Oximetry 14 L 08/09/19 15:07 Temperature 36.9 C 08/09/19 15:07 Temperature Source Skin 08/09/19 15:07 Pulse 88 08/09/19 15:07 Respiratory Rate 08/09/19 15:07 Blood Pressure 158/82 H 08/09/19 15:07 Pulse Oximetry 14 L 08/09/19 15:07 Oxygen Delivery Method Room Air 08/09/19 15:07 Oxygen Flow Rate 0 08/09/19 15:07
[2019-08-09 15:48] LABS: Abs Immature Grans 0.04 k/cumm (0.0-0.09); Absolute Basophil Count 0.04 k/cumm (0.0-0.2); Absolute Eosinophil Count 0.31 k/cumm (0.0-0.7); Absolute Lymphocyte Count 3.19 k/cumm (1.2-3.4); Absolute Monocyte Count 0.93 k/cumm (0.11-0.7); Absolute Neutrophil Count 4.89 k/cumm (1.2-6.7); Basophils % 0.4; Eosinophils % 3.3; HCT 42.5 % (36.0-46.0); HGB 14.2 g/dL (12.0-15.5); Immature Grans % 0.4 %; Lymphocytes % 33.9; Mean Corp. HGB Concentration 33.4 g/dL (32.0-36.0); Mean Corpuscular Hemoglobin 28.6 pg (27.0-33.0); Mean Corpuscular Volume 85.5 fL (80-95); Mean Platelet Volume 9.6 fL (8.0-11.0); Monocytes % 9.9; Neutrophils % 52.1; Platelet Count 342 x1000/uL (130-400); RBC 4.97 m/cumm (4.00-5.20); RBC Distribution Width 14.9 % (11.7-14.6)
[2019-08-09 16:02] LABS: ALT 23 U/L (14-59); AST 21 U/L (15-37); Albumin 4.2 g/dL (3.4-5.0); Alkaline Phosphatase 90 U/L (46-116); Anion Gap 10.6 mmol/L (3-11); BUN 19 mg/dL (7-18); Bilirubin, Total 0.4 mg/dL (0.2-1.0); CO2 24.4 mmol/L (21.0-32.0); CREATININE 1.22 mg/dL (0.55-1.02); Calcium 9.5 mg/dL (8.5-10.1); Chloride 107 mmol/L (98-107); Estimated GFR 42.63 (mL/min/1.73m2); Glucose 71 mg/dL (74-106); Magnesium 1.7 mg/dL (1.8-2.4); Potassium 3.9 mmol/L (3.5-5.1); Sodium 142 mmol/L (136-145); Total Protein 7.3 g/dL (6.4-8.2)
[2019-08-09 16:03] LABS: Troponin I < 0.05 ng/Ml (<0.06)
[2019-08-09] MEDS: Normal Saline 500 ML IV (16:30)
--- NOTE | 2019-08-09 16:35 | DI.VRAD_ITS ---
PROCEDURE INFORMATION: Exam: XR Chest, 2 Views Exam date and time: 08/09/2019 4:25 PM Age: 78 years old Clinical indication: Cough TECHNIQUE: Imaging protocol: XR of the chest Views: 2 views. COMPARISON: SC XR CHEST 2V PA LATERAL 08/28/2018 12:03 PM FINDINGS: Lungs: Subsegmental linear atelectasis versus scarring in the bilateral mid to lower lung grubbs. Pleural space: Unremarkable. No pleural effusion. No pneumothorax. Heart/Mediastinum: Unremarkable. No cardiomegaly. Vasculature: Mild atherosclerosis. Bones/joints: Degenerative changes in the spine. IMPRESSION: Subsegmental linear atelectasis versus scarring in the bilateral mid to lower lung grubbs. Mild atherosclerosis. Degenerative changes in the spine. Dictated and Authenticated by: Edward Gannon MD. Ordering:CABRERA Archer MD
[2019-08-09 16:44] LABS: TSH (W/Ref FT4) 9.93 uIU/mL (0.36-3.74)
[2019-08-09 17:02] LABS: FREE T4 0.92 ng/dL (0.76-1.46)
--- NOTE | 2019-08-09 17:38 | NUR.NOTE ---
prior to testing BGL PT had a [place] [employer], BGL was low. Suzi was notified and advised to give PT OJ:
[2019-08-09 18:46] LABS: Troponin I < 0.05 ng/Ml (<0.06)
== END 2019-08-09 19:55 | disposition home or self-care (01) ==
PROVIDERS: Emergency Medicine; Emergency Provider Physician Assistant; PCP Family Medicine
DX: R07.89 Other chest pain (principal); E11.649 Type 2 diabetes mellitus with hypoglycemia without coma; Z79.4 Long term (current) use of insulin; R03.0 Elevated blood-pressure reading, without diagnosis of hypertension
CPT/HCPCS: 36415; 36416; 80053; 82962; 93005; 96360; 99285; 71046; 83735; 84439; 84443; 84484; 85025; 93010